=== PATIENT | male | born 1975 | race Hispanic/Latino ===

== ENCOUNTER 2022-11-12 04:56 | Emergency (ER) | payer OTHER ==
[~2022-11-12] VITALS: Ht 185.4 cm; Wt 113.5 kg
[2022-11-12] MEDS ORDERED: KETOROLAC TROMETHAMINE 60 MG/2 ML VIAL ONE (05:14)
[2022-11-12] MEDS ORDERED: ACETAMIN/BUTALBITAL/CAFFEINE TAB ONE (05:14)
[2022-11-12] MEDS ORDERED: KETOROLAC TROMETHAMINE 60 MG/2 ML VIAL IM ONE (05:15)
[2022-11-12] MEDS ORDERED: ACETAMIN/BUTALBITAL/CAFFEINE TAB PO ONE (05:15)
[2022-11-12] MEDS ORDERED: FIORICET 50-301 EACH PO (05:23)
== END 2022-11-12 08:04 | disposition home or self-care (01) ==
LOC: ER 05:09
DX: R51.9 Headache, unspecified (principal); Z20.822 Contact with and (suspected) exposure to COVID-19; F17.210 Nicotine dependence, cigarettes, uncomplicated
CPT/HCPCS: 36415; 70450; 82948; 99284; J1885; U0002